=== PATIENT | female | born 1975 | race African-American/Black ===

== ENCOUNTER 2017-09-28 15:56 | Emergency (ER) | payer MEDICAID, OTHER ==
[~2017-09-28] VITALS: Ht 162.6 cm; Wt 61.2 kg
[~2017-09-28 15:56] MED LIST: IBUPROFEN600 MG ORAL; NKM
[2017-09-28] MEDS ORDERED: IBUPROFEN600 MG ORAL (16:31)
[2017-09-28] MEDS ORDERED: ZOFRAN ODT4 MG ORAL (16:31)
[2017-09-28 16:42] VITALS: BP 124/71
--- NOTE | 2017-09-30 08:22 | Emergency Room Report ---
History of Present Illness General Chief Complaint: Nausea, Vomiting, and Diarrhea Source: Patient Present Illness HPI Patient presents with son who has some similar findings Patient's son had initially around [place] began feeling nausea and discomfort Patient has not started over the past several days also feeling increased nausea general malaise mild headache Denies any neck pain or photophobia Denies any vomiting or diarrhea Denies any chest pain or shortness of breath Denies any fevers or rash Allergies: Coded Allergies: No Known Allergies (Unverified , 09/01/13) Patient History Past Medical History: see triage record Pertinent Family History: none Reviewed Nursing Documentation: PMH: Agreed, PSxH: Agreed Nursing Documentation-PMH Past Medical History: No Stated History Review of Systems All Other Systems: negative except mentioned in HPI Physical Exam Vital Signs Date Time Temp Pulse Resp B/P (MAP) Pulse Ox O2 Delivery O2 Flow Rate FiO2 09/28/17 16:16 97.9 99 20 139/79 100 Room Air Sp02 EP Interpretation: reviewed, normal General Appearance: well appearing, no apparent distress Head: normocephalic, atraumatic Eyes: bilateral eye PERRL, bilateral eye EOMI ENT: hearing grossly normal, normal pharynx, TMs + canals normal, uvula midline Neck: full range of motion, supple, no meningismus, no bony tend Respiratory: lungs clear, normal breath sounds, no rhonchi, no respiratory distress, no retraction, no accessory muscle use Cardiovascular #1: normal peripheral pulses, regular rate, rhythm, no edema, no gallop, no JVD, no murmur Gastrointestinal: normal bowel sounds, non tender, soft, no mass, no organomegaly, non-distended, no guarding, no hernia, no pulsatile mass, no rebound Genitourinary: no CVA tenderness Musculoskeletal: normal inspection Neurologic: oriented x3, responsive, public health specialist III-XII nml as tested, motor strength/ tone normal, sensory intact Psychiatric: mood/affect normal Skin: normal color, no rash, warm/dry, palpation normal Lymphatic: normal inspection, no adenopathy Medical Decision Making Diagnostic Impression: Primary Impression: flu symptoms ER Course Patient does not appear septic or toxic appears well hydrated Appears to have findings in line with likely flu symptoms Patient will have initial conservative outpatient trial And return with any changes Last Vital Signs Date Time Temp Pulse Resp B/P (MAP) Pulse Ox O2 Delivery O2 Flow Rate FiO2 09/28/17 16:42 97.9 67 18 124/71 99 Room Air Status: unchanged Disposition: HOME, SELF-CARE Condition: Stable Scripts Ibuprofen* (MOTRIN*) 600 Mg Tablet 600 MG ORAL Q8H Y for For Pain, #20 TAB 0 Refills Prov: TRES HUGHES D.O. 09/28/17 Ondansetron Odt* (ZOFRAN ODT*) 4 Mg Tab.rapdis 4 MG ORAL Q6H Y for Nausea & Vomiting, #20 TAB 0 Refills Prov: TRES HUGHES D.O. 09/28/17 Referrals: [facility],REFERRING (PCP) Patient Instructions: Influenza, Adult, [id number] Additional Instructions: Patient is provided with the discharge instructions notified to follow up with primary doctor in the next 2-3 days otherwise return to the er with any worsening symptoms. Please note that this report is being documented using Marco VascoON technology. This can lead to erroneous entry secondary to incorrect interpretation by the dictating instrument. TRES HUGHES D.O. Sep 30, 2017 08:22
== END 2017-09-28 16:50 | disposition home or self-care (01) ==
LOC: EMR 16:45
DX: J11.1 Influenza due to unidentified influenza virus with other respiratory manifestations (principal); R11.2 Nausea with vomiting, unspecified; R19.7 Diarrhea, unspecified
CPT/HCPCS: 99284

== ENCOUNTER 2017-12-25 23:50 | Emergency (ER) | payer OTHER ==
[~2017-12-25] VITALS: Ht 165.1 cm; Wt 59.0 kg
[~2017-12-25 23:50] MED LIST changes: +ZOFRAN ODT4 MG ORAL
[2017-12-26] MEDS ORDERED: IBUPROFEN600 MG ORAL (00:11)
[2017-12-26] MEDS ORDERED: HYDROCODON-ACE1 EA15 ORAL (00:11)
--- NOTE | 2017-12-26 00:12 | Emergency Room Report ---
History of Present Illness General Chief Complaint: Multiple Trauma/Fall Source: Patient Present Illness HPI Is a 42-year-old female with no cerumen past medical history. He presents with multiple pain complaint from an injury. 4 days ago she slipped and fell a car dealership. She hit her right elbow on the door. Now she complaining of neck pain, elbow pain and hand pain. No fever or chills. No nausea no vomiting. Better with Motrin and Tylenol initially. Has not anything else. No loss of consciousness. Pain is 9 out of 10. Allergies: Coded Allergies: No Known Allergies (Unverified , 09/01/13) Patient History Past Medical History: see triage record, old chart reviewed Past Surgical History: other Pertinent Family History: none Social History: Denies: smoking Last Menstrual Period: last week Now: No : 3 Immunizations: other Reviewed Nursing Documentation: PMH: Agreed; PSxH: Agreed Nursing Documentation-PMH Past Medical History: No Stated History Review of Systems Eye: Denies: eye pain, blurred vision ENT: Denies: ear pain, nose congestion, throat swelling Respiratory: Denies: cough, shortness of breath Cardiovascular: Denies: chest pain, palpitations Gastrointestinal: Denies: abdominal pain, diarrhea, nausea, vomiting Musculoskeletal: Reports: joint pain, muscle pain; Denies: back pain Skin: Denies: rash Neurological: Denies: headache, numbness Endocrine: Denies: increased thirst, increased urine Hematologic/Lymphatic: Denies: easy bruising All Other Systems: negative except mentioned in HPI Physical Exam Vital Signs Date Time Temp Pulse Resp B/P (MAP) Pulse Ox O2 Delivery O2 Flow Rate FiO2 12/25/17 23:54 97.5 81 18 145/81 98 Room Air 97.5 vitals normal Sp02 EP Interpretation: reviewed, normal General Appearance: well appearing, no apparent distress, alert Head: normocephalic, atraumatic Eyes: bilateral eye PERRL, bilateral eye EOMI ENT: hearing grossly normal, normal pharynx Neck: full range of motion, supple, no meningismus Respiratory: chest non-tender, lungs clear, normal breath sounds Cardiovascular #1: regular rate, rhythm, no murmur Gastrointestinal: normal bowel sounds, non tender, no mass, no organomegaly, no bruit, non-distended Musculoskeletal: back normal, gait/station normal, normal range of motion, other - Patient has tenderness over the right trapezius/shoulder area. She also has tenderness to the right elbow area. No evidence of any trauma. No hematoma. No ecchymosis. No abrasion. Also complaining of left hand pain. Again no obvious injury. Neurologic: alert, oriented x3 Psychiatric: mood/affect normal Skin: warm/dry Medical Decision Making Diagnostic Impression: Primary Impression: Contusion Qualified Codes: S50.01XA - Contusion of right elbow, initial encounter Additional Impression: Cervical strain, acute Qualified Codes: S16.1XXA - Strain of muscle, fascia and tendon at neck level , initial encounter ER Course Patient with soft tissue injury from a fall. No fracture or dislocation clinically. I see no need for x-rays since this would not show soft tissue injury. Last Vital Signs Date Time Temp Pulse Resp B/P (MAP) Pulse Ox O2 Delivery O2 Flow Rate FiO2 12/25/17 23:54 97.5 81 18 145/81 98 Room Air 97.5 Status: improved Disposition: HOME, SELF-CARE Condition: Stable Scripts Ibuprofen* (MOTRIN*) 600 Mg Tablet 600 MG ORAL THREE TIMES A DAY, #30 TAB 0 Refills Prov: JENISE MELTON M.D. 12/26/17 Hydrocodone/Acetaminophen 5-325* (HYDROCODONE/ACETAMINOPHEN 5-325*) 1 Each Tablet 1 TAB ORAL Q6H PRN for For Pain, #15 TAB 0 Refills Prov: JENISE MELTON M.D. 12/26/17 Additional Instructions: Follow-up with your DrRon in 7 days. Return if symptom worsen. JENISE MELTON M.D. Dec 26, 2017 00:12
[2017-12-26] MEDS ORDERED: Norco 5mg/325mg tab ORAL ONE (00:15)
[2017-12-26 00:16] VITALS: BP 145/81
[2017-12-26 00:17] VITALS: BP 145/81
== END 2017-12-26 00:20 | disposition home or self-care (01) ==
LOC: EMR 12-26 00:10
DX: S50.01XA Contusion of right elbow, initial encounter (principal); S16.1XXA Strain of muscle, fascia and tendon at neck level, initial encounter; W01.0XXA Fall on same level from slipping, tripping and stumbling without subsequent striking against object, initial encounter; Y92.89 Other specified places as the place of occurrence of the external cause
CPT/HCPCS: 99284

== ENCOUNTER 2018-07-22 19:05 | Emergency (ER) | payer SELFPAY ==
[~2018-07-22] VITALS: Ht 165.1 cm; Wt 59.0 kg
[~2018-07-22 19:05] MED LIST changes: +HYDROCODON-ACE1 EA15 ORAL
[2018-07-22 19:35] VITALS: BP 140/63
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
[2018-07-22] MEDS ORDERED: Tylenol #3 tab (300mg/30mg) ORAL ONE (20:15)
[2018-07-22] MEDS ORDERED: Methocarbamol 500mg tab ORAL ONE (20:15)
[2018-07-22] MEDS ORDERED: TYLENOL EXTRA500 MG ORAL (23:03)
[2018-07-22] MEDS ORDERED: ROBAXIN500 MG PO (23:03)
[2018-07-22 23:43] VITALS: BP 135/60
[2018-07-22 23:45] VITALS: BP 140/63
--- NOTE | 2018-07-23 09:29 | Diagnostic Imaging Report ---
Indication: Chest pain Technique: Continuous helical transaxial imaging of the chest was obtained from the thoracic inlet to the upper abdomen. No intravenous contrast was administered. Coronal 2-D reformats were also obtained. Total Dose length Product (DLP): 466.[address] Dose Index Volume (CTDIvol): 12.2 mGy Comparison: none Findings: The lungs are clear. No infiltrate or abnormal fluid collections identified. No pleural or pericardial effusion identified. Visualized part of the upper abdomen is unremarkable. Osseous structures are unremarkable. IMPRESSION: Negative noncontrast CT chest [facility] has communicated the preliminary results to the Emergency Department. Their findings are largely concordant with this report. The CT scanner at [facility] is accredited by the [employer] and the scans are performed using dose optimization techniques as appropriate to a performed exam including Automatic Exposure control.
--- NOTE | 2018-07-23 11:03 | Diagnostic Imaging Report ---
Indication: Foot Pain Comparison: None Findings: 3 views of the right foot were obtained. No acute fractures, malalignment, erosions or periostitis are identified. Soft tissues are unremarkable. There is apparent foreign body at the first interspace between the first and second toes. Correlate clinically. Acuity of this is not known. Impression: Apparent foreign body.
--- NOTE | 2018-07-23 11:07 | Diagnostic Imaging Report ---
Indication: Sternal pain. Comparison: None Findings: 3 views of the sternum obtained. No fracture or malalignment identified. IMPRESSION: Negative examination
--- NOTE | 2018-07-23 19:36 | Cardiology Report ---
APPROVED REPORT EKG Measurement Heart [id number] Normal sinus rhythm Normal ECG
== END 2018-07-22 23:45 | disposition home or self-care (01) ==
LOC: EMR 19:42
DX: S29.011A Strain of muscle and tendon of front wall of thorax, initial encounter (principal); S90.31XA Contusion of right foot, initial encounter; V43.52XA Car driver injured in collision with other type car in traffic accident, initial encounter; Y92.410 Unspecified street and highway as the place of occurrence of the external cause
CPT/HCPCS: 71120; 71250; 93005; 99284

== ENCOUNTER 2020-03-18 20:46 | Emergency (ER) | payer OTHER ==
[~2020-03-18] VITALS: Ht 165.1 cm; Wt 59.0 kg
[~2020-03-18 20:46] MED LIST changes: +ROBAXIN500 MG PO; +TYLENOL EXTRA500 MG ORAL
[2020-03-18 21:02] VITALS: BP 144/82
[2020-03-18] MEDS ORDERED: TYLENOL EXTRA500 MG ORAL (21:14)
[2020-03-18] MEDS ORDERED: IBUPROFEN600 M1 ORAL (21:14)
[2020-03-18] MEDS ORDERED: LIDODERM700 M1 TOPIC (21:14)
[2020-03-18] MEDS ORDERED: ROBAXIN-750750 MG PO (21:14)
[2020-03-18] MEDS ORDERED: Ketorolac 30mg Inj IM ONE (21:15)
--- NOTE | 2020-03-18 21:15 | Emergency Room Report ---
History of Present Illness General Chief Complaint: Multiple Trauma/Fall Source: Patient Present Illness HPI Disclaimer: Please note that this report is being documented using DRAGON technology. This can lead to erroneous entry secondary to incorrect interpretation by the dictating instrument. HPI: 44-year-old otherwise healthy female presents for evaluation of myalgias, arthralgias after a fall. The patient was at a gas station and tripped over some boxes yesterday falling forward onto her outstretched hand. There is no head injury no loss conscious. She initially felt well went home took some NSAIDs and a leftover Flexeril from a friend. Today she complains of worsening stiffness in the upper shoulders and between the shoulder blades, diffuse arthralgias and myalgias in the upper and lower extremities. She had a mild headache yesterday but this is now resolved. Denies vomiting, seizures. Has no history of anticoagulant use. Otherwise in her usual state of health, eating drinking at baseline, denies nausea or vomiting. 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 EOMI. Resp: Normal work of breathing. Skin: Intact. No abrasions, laceration or rash over the exposed skin MSK: Normal tone and bulk. Moving all extremities. No obvious deformity. Full range of motion all extremities. Diffuse myalgias particularly over the trapezius bilaterally. Neuro: Awake and alert. Mentating appropriately. Sensation intact in the upper and lower extremities over the dermatomes bilaterally Medical Decision Making Diagnostic Impression: Primary Impression: Myalgia Additional Impression: Back spasm ER Course This a 44-year-old female presenting for evaluation of myalgias and arthralgias after a fall yesterday. Physical exam reassuring. Consistent with muscle strain and spasm in the upper back. No evidence of bony trauma, back injury, spinal cord injury or other acute injury. No evidence of intracranial injury or significant trauma. Do not believe she requires emergent labs or imaging at this time. Patient will be given a Toradol shot here and discharged with continued NSAIDs, lidocaine patches and muscle relaxer. We will follow-up with her PMD as needed. Discussed reasons to return to the emergency department. She understands and agrees with treatment plan. Last Vital Signs Date Time Temp Pulse Resp B/P (MAP) Pulse Ox O2 Delivery O2 Flow Rate FiO2 03/18/20 21:02 98.1 91 18 144/82 98 Room Air Disposition: HOME, SELF-CARE Condition: Stable Scripts Methocarbamol* (ROBAXIN-750*) 750 Mg Tablet 750 MG PO QID, #28 TAB 0 Refills Prov: Maco Sarkar MD 03/18/20 Lidocaine Patch* (Lidoderm Patch*) 1 Each Adh..patch 1 PATCH TOPIC DAILY, #14 PATCH 0 Refills Patch(es) may remain in place for up to 12 hours in any 24-hour period. Prov: Maco Sarkar MD 03/18/20 Ibuprofen* (MOTRIN*) 600 Mg Tablet 600 MG ORAL Q6H PRN for For Pain, #30 TAB 0 Refills Prov: Maco Sarkar MD 03/18/20 Acetaminophen* (TYLENOL EXTRA STRENGTH*) 500 Mg Tablet 500 MG ORAL Q6H, #20 TAB 0 Refills Prov: Maco Sarkar MD 03/18/20 Referrals: [facility]. [facility] Patient Instructions: Thoracic Strain Additional Instructions: Please follow-up with your primary care doctor in the next 1 to 3 days to discuss this emergency department visit and for reevaluation. If you have any new or worsening symptoms please return to the emergency department for reevaluation. Please note that this report is being documented using kenxusON technology. This can lead to erroneous entry secondary to incorrect interpretation by the dictating instrument. Maco Sarkar MD Mar 18, 2020:15
[2020-03-18 21:26] VITALS: BP 144/82
== END 2020-03-18 21:28 | disposition home or self-care (01) ==
LOC: EMR 21:05
DX: M79.18 Myalgia, other site (principal); W01.0XXA Fall on same level from slipping, tripping and stumbling without subsequent striking against object, initial encounter; Y93.9 Activity, unspecified; Y92.524 Gas station as the place of occurrence of the external cause
CPT/HCPCS: 96372; J1885; Z7502; 99283